=== PATIENT | female | born 1995 | race Caucasian/White ===

== ENCOUNTER 2017-07-03 11:30 | Emergency (ER) | payer BC ==
--- NOTE | 2017-07-03 12:04 | ER Document Report ---
ED Neuro Symptoms/Deficit - General Chief Complaint: Numbness of Face Stated Complaint: RIGHT SIDE FACIAL PAIN Time Seen by Provider: 07/03/17 12:00 Notes: Patient states she woke this morning and noticed that she could not blink with her right eye and that she had some coffee ran out the side of her mouth when she tried to drink. She denies any pain. She denies any numbness. She denies any vision or hearing changes. She states yesterday she felt in her normal state of health. No recent illnesses or trauma. No rashes. No previous episodes of similar symptoms. Nothing appears to make the symptoms better or worse. They are constant. They are mild to moderate. There is no radiation of the symptoms. They are localized to the upper and lower portions of the right face. - Related Data Allergies/Adverse Reactions: No Known Allergies Allergy (Verified 07/03/17 11:35) Past Medical History - General Information source: Patient - Social History Smoking Status: Never Smoker Frequency of alcohol use: None Drug Abuse: None Family History: Reviewed & Not Pertinent Renal/ Medical History: Denies: Hx Peritoneal Dialysis Surgical Hx: Negative Review of Systems - Review of Systems Constitutional: denies: Chills, Fever EENT: Blurred vision, Tearing. denies: Eye pain, Double vision Skin: denies: Lumps, Rash Neurological/Psychological: Weakness. denies: Confusion, Gait changes, Speech impairment, Numbness, Tingling Physical Exam - Vital signs Interpretation: Normal - General General appearance: Appears well, Alert - HEENT Head: Normocephalic, Atraumatic Eyes: Normal Pupils: PERRL - Respiratory Respiratory status: No respiratory distress Chest status: Nontender Breath sounds: Normal Chest palpation: Normal - Cardiovascular Rhythm: Regular Heart sounds: Normal auscultation Murmur: No - Abdominal Inspection: Normal Distension: No distension Bowel sounds: Normal Tenderness: Nontender Organomegaly: No organomegaly - Back Back: Normal, Nontender - Extremities General upper extremity: Normal inspection, Nontender, Normal color, Normal ROM , Normal temperature General lower extremity: Normal inspection, Nontender, Normal color, Normal ROM , Normal temperature, Normal weight bearing. No: Francisco's sign - Neurological Neuro grossly intact: Yes Cognition: Normal Orientation: AAOx4 [place] Coma Scale Eye Opening: Spontaneous [place] Coma Scale Verbal: Oriented [place] Coma Scale Motor: Obeys Commands Gina Coma Scale Total: 15 Speech: Normal Cranial nerves: Facial palsy, Other - Patient has an obvious upper and lower seventh motor neuron paralysis. Her smile is corrected and she is unable to close her right eye.. 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 Please tape her eye shut at night. Please use eyedrops during the day. Your blood pressure was mildly elevated. Please have this rechecked within 1 week by your family doctor. Prescriptions: Prednisone [Deltasone 20 mg Tablet] 3 tab PO DAILY 5 Days tablet Forms: Elevated Blood Pressure Referrals: BRE SU MD [COMMUNITY BASED STAFF] - Follow up in 1 week
[2017-07-03 12:05] VITALS: BP 141/88
== END 2017-07-03 12:08 | disposition home or self-care (01) ==
LOC: ER 11:30
DX: G51.0 Bell's palsy (principal)
CPT/HCPCS: 99283

== ENCOUNTER 2017-07-10 10:56 | Emergency (ER) | payer BC ==
--- NOTE | 2017-07-10 12:29 | RADIOLOGY REPORT (SQ) ---
EXAM DESCRIPTION: CT HEAD WITHOUT COMPLETED DATE/TIME: 07/10/2017 12:03 pm REASON FOR STUDY: facial paralysis right COMPARISON: None. TECHNIQUE: Axial images acquired through the brain without intravenous contrast. Images reviewed wi th bone, brain and subdural windows. Images stored on PACS. All CT scanners at this facility use dose modulation, iterative reconstruction, and/or weight based d osing when appropriate to reduce radiation dose to as low as reasonably achievable (ALARA). [facility]: Dose Right [facility]: CareDose [facility]: Dose Right [facility]: Teradose 4D [facility]: Smart [employer] RADIATION DOSE: Up-to-date CT equipment and radiation dose reduction techniques were employed. CTDIv ol: 64.6 mGy. DLP: 1034 mGy-cm. mGy. LIMITATIONS: None. FINDINGS: VENTRICLES: Normal size and contour. CEREBRUM: No masses. No hemorrhage. No midline shift. No evidence for acute infarction. Normal gra y/white matter differentiation. No areas of low density in the white matter. CEREBELLUM: No masses. No hemorrhage. No alteration of density. No evidence for acute infarction. EXTRAAXIAL SPACES: No fluid collections. No masses. ORBITS AND GLOBE: No intra- or extraconal masses. Normal contour of globe without masses. CALVARIUM: No fracture. PARANASAL SINUSES: No fluid or mucosal thickening. SOFT TISSUES: No mass or hematoma. OTHER: No other significant finding. IMPRESSION: NORMAL BRAIN CT WITHOUT CONTRAST. EVIDENCE OF ACUTE STROKE: NO. COMMENT: Quality ID # [id number]: Final reports with documentation of one or more dose reduction techniques (e.g., Automated exposure control, adjustment of the mA and/or kV according to patient size, use of iterative reconstruction technique) TECHNICAL DOCUMENTATION: JOB ID: [id number]- All Rights Reserved
--- NOTE | 2017-07-10 12:34 | ER Document Report ---
ED General - General Chief Complaint: Numbness of Face Stated Complaint: FACIAL NUMBNESS Time Seen by Provider: 07/10/17 11:34 Mode of Arrival: Ambulatory Information source: Patient Notes: Patient was seen here approximate 1 week ago with right facial paralysis. At that time she was diagnosed with Meyer's palsy. She was placed on prednisone. She states that she ran out of the prednisone 2 days ago. She states now she feels that some of the weakness that was resolving has returned. She states she feels like the muscles of her face have gradually increased in strength of the last week. She feels she can close her eye more than she could a week ago. She also states that her face hurts along the jawline on the right. She does state that her dog hit her in the face 2 days ago. She states she is unable to get follow-up appointment for another 2 weeks. She denies any previous history of high blood pressure. The pain in her jaws been a dull ache. It is constant. It is mild to moderate. Nothing makes it worse except touching. It is better when left alone. The pain does radiate into her face. TRAVEL OUTSIDE OF THE [place] IN LAST 30 DAYS: No - Related Data Allergies/Adverse Reactions: No Known Allergies Allergy (Verified 07/03/17 11:35) Past Medical History - General Information source: Patient - Social History Smoking Status: Unknown if Ever Smoked Frequency of alcohol use: None Drug Abuse: None Family History: Reviewed & Not Pertinent Patient has suicidal ideation: No Patient has homicidal ideation: No Renal/ Medical History: Denies: Hx Peritoneal Dialysis Review of Systems - Review of Systems Constitutional: denies: Chills, Fever Cardiovascular: denies: Chest pain, Palpitations Respiratory: denies: Cough, Short of breath -: Yes All other systems reviewed and negative Physical Exam - Vital signs Vitals: Temp Pulse Resp BP Pulse Ox 98.7 F 79 16 151/79 H 100 07/10/17 11:29 07/10/17 11:29 07/10/17 11:29 07/10/17 11:29 07/10/17 11:29 Interpretation: Hypertensive - General General appearance: Appears well, Alert - HEENT Head: Normocephalic, Atraumatic Eyes: Normal Pupils: PERRL - Respiratory Respiratory status: No respiratory distress Chest status: Nontender Breath sounds: Normal Chest palpation: Normal - Cardiovascular Rhythm: Regular Heart sounds: Normal auscultation Murmur: No - Abdominal Inspection: Normal Distension: No distension Bowel sounds: Normal Tenderness: Nontender Organomegaly: No organomegaly - Back Back: Normal, Nontender - Extremities General upper extremity: Normal inspection, Nontender, Normal color, Normal ROM , Normal temperature General lower extremity: Normal inspection, Nontender, Normal color, Normal ROM , Normal temperature, Normal weight bearing. No: Francisco's sign - Neurological Neuro grossly intact: Yes Cognition: Normal Orientation: AAOx4 [place] Coma Scale Eye Opening: Spontaneous [place]ina Coma Scale Verbal: Oriented [place] Coma Scale Motor: Obeys Commands Gina Coma Scale Total: 15 Speech: Normal Cranial nerves: Facial palsy, Other - Patient has upper and lower facial palsy on the right. 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 Sensory: Normal - Psychological Associated symptoms: Normal affect, Normal mood - Skin Skin Temperature: Warm Skin Moisture: Dry Skin Color: Normal Course - Vital Signs Vital signs: Temp Pulse Resp BP Pulse Ox 98.7 F 79 16 151/79 H 100 07/10/17 11:29 07/10/17 11:29 07/10/17 11:29 07/10/17 11:29 07/10/17 11:29 - Diagnostic Test Radiology reviewed: Image reviewed, Reports reviewed - Head CT shows no evidence of acute pathology Discharge - Discharge Clinical Impression: Meyer's palsy Condition: Stable Disposition: HOME, SELF-CARE Instructions: Meyer's Palsy ([facility]) Additional Instructions: Please follow-up as scheduled with your primary care physician. Your blood pressure is elevated please have this rechecked within 1 week by your primary care physician. Prescriptions: Hydrocodone/Acetaminophen [Trezevant 5-325 mg Tablet] 1 tab PO Q6 PRN #8 tablet PRN Reason: Prednisone [Deltasone 20 mg Tablet] 3 tab PO DAILY 5 Days tablet Forms: Elevated Blood Pressure Referrals: BRE SU MD [COMMUNITY BASED STAFF] - Follow up as needed
[2017-07-10 12:43] VITALS: BP 136/65
== END 2017-07-10 12:40 | disposition home or self-care (01) ==
LOC: ER 10:56
DX: G51.0 Bell's palsy (principal); R68.84 Jaw pain; W54.1XXA Struck by dog, initial encounter
CPT/HCPCS: 70450; 99284